=== PATIENT | female | born 1990 | race Caucasian/White ===

== ENCOUNTER 2025-04-26 19:10 | Emergency (ER) | payer BC, SELFPAY ==
--- OUTSIDE RECORDS SUMMARY | 2025-04-26 19:23 | XMS_ITS | Clinical Summary ---
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 Role Phone Unavailable Primary Care Provider Unavailabl e Social History Tobacco Use Types Packs/Day Years Used Date Smoking Tobacco: Never Assessed Comments Unknown Sex and Gender Information Value Date Recorded Sex Assigned at Not on file Legal Sex Female 8:25 PM EDT Gender Identity Not on file Sexual Orientation Not on file Last Filed Vital Signs Vital Sign Reading Time Taken Comments Blood Pressure 110/68 02/02/2019 12:00 PM EDT Pulse - - Temperature - - Respiratory Rate - - Oxygen Saturation - - Inhaled Oxygen Concentration - - Weight 81.6 kg (180 lb) 06/21/2020 12:00 PM EDT Height 152.4 cm (5') 06/21/2020 12:00 PM EDT Body Mass Index 35.15 06/21/2020 12:00 PM EDT Plan of Treatment Not on file
[2025-04-26 19:28] VITALS: BP 139/112; PULSE 67; TEMP 36.8; O2SAT 100; BMI 39.5
--- NOTE | 2025-04-26 19:30 | XR_ITS ---
The [address] [address] Patient Name: ALIYAH DE ANDA MRN: [id number] date: 1990 Sex: F Assigned Patient Location: ED.MAIN Current Patient Location: ED.MAIN Accession/Order Number: [id number] Exam Date: 04/26/2025 20:06 Report Date: 04/26/2025 20:08 At the request of: RIRI SALDAÑA Procedure: XR foot RT min 3V 3 views right foot plain film COMPARISON:None HISTORY: Right fourth toe injury ACUTE FINDINGS: None DEGENERATIVE CHANGE: Unremarkable SOFT TISSUE FINDINGS: No subcutaneous air. No radiodense foreign body. JOINT EFFUSION: None POSTOP CHANGES: None BONE MINERALIZATION: Adequate XR/XR foot RT min 3V IMPRESSION: No acute findings. Impression dictated by: Manjeet Barksdale M.D. 04/26/2025 8:08 PM Dictation Location: [place] [address] Electronically authenticated by: [id number] Y Date: 04/26/2025 20:08
--- NOTE | 2025-04-26 19:59 | ED.GENADUL1 ---
HPI HPI - General Adult General Chief complaint: Extremity Injury, Lower Stated complaint: PAIN IN R TOE Time Seen by Provider: 04/26/25 19:30 Source: patient Mode of arrival: walk-in Limitations: no limitations History of Present Illness HPI narrative: 34-year-old female presents here with a chief complaint of an injury to the fourth digit of her right foot. [place] state [place] in [place] and excellently stubbed her toe. She presents here with a chief complaint of redness and swelling to the fourth digit of the right foot consistent with paronychia. Swelling and abscess appreciated around the bed of the nail. Patient's toenails are dirty. She states she did not feel that she had cut or injured her toe but then while driving it became red and swollen on the way home. She is not up-to-date on her tetanus immunization. patient went to urgent care facility and they sent her here. Related Data Previous Rx's �Medication �Instructions �Recorded clindamycin HCl 300 mg capsule 300 mg PO BID 10 days #20 caps 04/26/25 sulfamethoxazole 800 1 tab PO BID 10 days #20 tabs 04/26/25 mg-trimethoprim 160 mg tablet (Bactrim DS) Allergies Allergy/AdvReac Type Severity Reaction Status Date / Time cefprozil (From Cefzil) Allergy Unknown Verified 04/26/25 19:33 Opioid HPI Opioid Management Most Recent Opioid Data: Last Pain Scale 5 04/26/25, 19:28 Review of Systems ROS Status of ROS 10 or more systems reviewed and unremarkable except as noted in history and below PFSH PFSH Social History Little interest or pleasure in doing things: not at all Feeling down, depressed, or hopeless: not at all Exam Narrative Exam Narrative: All Systems are negative except as noted/marked.All systems reviewed and otherwise negative Nurses note and vital signs reviewed and patient is not hypoxic. General: The patient appears well and in no apparent distress. Patient is resting comfortably on cart. Skin: Warm, dry, no pallor noted. There is no blister to base of nail on right 4 th digit Head: Normocephalic, atraumatic Eye: Normal conjunctiva, no drainage, EOMI. PERRL Musculoskeletal: paronychia fourth digit right toe, foreign body, dirt under nail, noted to the digit of the fourth toe with blister, no streaking or other redness to the toe itself Neurological: A&O x4, normal speech Psychiatric: Cooperative Constitutional Vital Signs, click to edit/add: Last Vital Signs Temp 98.2 F 04/26/25 19:28 Pulse 67 04/26/25 19:28 Resp 18 04/26/25 19:28 BP 139/112 H 04/26/25 19:28 Pulse Ox 100 04/26/25 19:28 O2 Del Method Room Air 04/26/25 19:28 Course Vital Signs Vital signs: Vital Signs Temperature 98.2 F 04/26/25 19:28 Pulse Rate 67 04/26/25 19:28 Respiratory Rate 18 04/26/25 19:28 Blood Pressure 139/112 H 04/26/25 19:28 Pulse Oximetry 100 04/26/25 19:28 Oxygen Delivery Method Room Air 04/26/25 19:28 Temperature 98.2 F 04/26/25 19:28 Pulse Rate 67 04/26/25 19:28 Respiratory Rate 18 04/26/25 19:28 Blood Pressure 139/112 H 04/26/25 19:28 Pulse Oximetry 100 04/26/25 19:28 Oxygen Delivery Method Room Air 04/26/25 19:28 Medical Decision Making MDM Narrative Medical decision making narrative: 34-year-old female presents here with a chief complaint of an injury to the fourth digit of her right foot. Patient was out of state walking in a river or [place] and excellently stubbed her toe. She presents here with a chief complaint of redness and swelling to the fourth digit of the right foot consistent with paronychia. Swelling and abscess appreciated around the bed of the nail. Patient's toenails are dirty. She states she did not feel that she had cut or injured her toe but then while driving it became red and swollen on the way home. She is not up-to-date on her tetanus immunization. patient went to urgent care facility and they sent her here. On the right foot had an examination consistent with paronychia. I did open the blister and purulent drainage was expressed out of the area. Wound was cleaned with surgical brush and Hibiclens. Soaked in Hibiclens and normal saline. There was a small pebble removed from underneath her nail which I believe may or may not have caused the infection to her foot she had been walking in a dirty native or pond. Patient was updated on tetanus immunization medicated here with Bactrim and clindamycin she will be discharged home with both as she states she has a Ceftin allergy. Patient will follow-up with jaguar Ortiz. Differential Diagnosis Differential Diagnosis: Nailbed injury, paronychia, blister, foreign body Medical Records Medical records reviewed: Yes I reviewed the patient's medical records Imaging Data foot: Radiologist's impression: ITS Impressions Foot X-Ray 04/26/25 19:30 IMPRESSION: No acute findings. Impression dictated by: Manjeet Barksdale M.D. 04/26/2025 8:08 PM Dictation Location: [employer] Electronically authenticated by: [id number] Y Date: 04/26/2025 20:08 Discharge Plan Discharge Chief Complaint: Extremity Injury, Lower Clinical Impression: Paronychia Patient Disposition: Home, Self-Care Time of Disposition Decision: 20:20 Condition: Good Prescriptions / Home Meds: New sulfamethoxazole-trimethoprim [Bactrim DS] 800-160 mg tablet 1 tab PO BID 10 Days Qty: 20 0RF clindamycin HCl 300 mg capsule 300 mg PO BID 10 Days Qty: 20 0RF Print Language: Belgian Instructions: Paronychia (ED) Referrals: Physician,Non-Staff, MD [Primary Care Provider] - 1 week Ras Ortiz DPM [Physician, Podiatry] - 1 week Discharge Date/Time: 04/26/25 20:23
[2025-04-26] MEDS: SULFAMETHOXAZOLE/TRIMETHOPRIM 800-160 MG TABLET 1 TAB PO (20:11)
[2025-04-26] MEDS: CLINDAMYCIN HCL 150 MG CAPSULE 300 MG PO (20:11)
[2025-04-26] MEDS: BACITRACIN 0.9 GM PACKET 1 PACKET TOPICAL (20:11)
[2025-04-26] MEDS: ADACEL DIPH,PERTUSS(ACELL),TET VAC/PF 0.5 ML ADULT SYRINGE IM (20:12)
== END 2025-04-26 20:23 | disposition home or self-care (01) ==
PROVIDERS: Emergency Provider Internal Medicine
DX: L03.031 Cellulitis of right toe (principal); Z23 Encounter for immunization
CPT/HCPCS: 73630; 87070; 87075; 87077; 87186; 90471; 90715; 99285